=== PATIENT | female | born 1955 | race Two or more races ===

== ENCOUNTER 2022-01-30 21:47 | Inpatient (IN) | payer OTHER ==
[~2022-01-30] VITALS: Ht 165.1 cm; Wt 159.7 kg
[2022-01-31] MEDS ORDERED: HYDROCHLOROTHIAZIDE 12.5MG CAPSULE PO ONE (01:45)
[2022-01-31] MEDS ORDERED: LISINOPRIL 40MG TABLET PO ONE (01:45)
[2022-01-31 02:26] LABS: BASOPHILS % 1.2 % (0.0-2.0); EOSINOPHILS % 3.1 % (0.0-5.0); HEMATOCRIT. 44.6 % (36.0-48.0); HEMOGLOBIN. 14.3 g/dL (12.0-16.0); LYMPHOCYTES % 33.3 % (20.0-50.0); MEAN CORPUSCULAR HEMOGLOBIN 28.6 pg (28.0-32.0); MEAN CORPUSCULAR VOLUME 89.6 fL (81.0-99.0); MEAN PLATELET VOLUME 9.4 fl (7.4-10.4); MONOCYTES % 5.2 % (2.0-8.0); NEUTROPHILS % 57.2 % (40.0-76.0); PLATELET 172 x1000/uL (130-400); RED BLOOD CELL COUNT 4.98 mill/uL (4.2-5.4); RED CELL DISTRIBUTION WIDTH 15.9 % (11.6-14.6)
[2022-01-31 02:27] LABS: CLARITY URINE CLOUDY (CLEAR); COLOR URINE YELLOW (YELLOW); KETONES URINE NEGATIVE (NEGATIVE); LEUKOCYTE ESTERASE URINE NEGATIVE (NEGATIVE); NITRITE URINE NEGATIVE (NEGATIVE); OCCULT BLOOD URINE TRACE (NEGATIVE); PROTEIN URINE 1+ (NEGATIVE); SPECIFIC GRAVITY URINE 1.012 (1.005-1.030)
[2022-01-31 02:39] LABS: CHLORIDE 106 mEq/L (98-107)
[2022-01-31] MEDS ORDERED: ASPIRIN 325MG TABLET PO ONE (04:15)
[2022-01-31] MEDS ORDERED: FUROSEMIDE 40MG/4ML VIAL IVP NR (05:15)
[2022-01-31] MEDS ORDERED: ASPIRIN 81MG EC TABLET PO SCH (06:30)
[2022-01-31] MEDS ORDERED: DEXTROSE 50% WATER 50ML SYRINGE IV PRN (06:30)
[2022-01-31] MEDS ORDERED: MAGNESIUM/ALUMINUM HYDROXIDE/SIMETHICONE 30ML UDC PO PRN (06:30)
[2022-01-31] MEDS ORDERED: GUAIFENESIN 200MG/10ML SUGAR FREE UDC PO PRN (06:30)
[2022-01-31] MEDS ORDERED: DOCUSATE SODIUM 100MG CAPSULE PO PRN (06:30)
[2022-01-31] MEDS ORDERED: IPRATROPIUM/ALBUTEROL 0.5-3(2.5)MG/3ML NEB HHN PRN (06:30)
[2022-01-31] MEDS ORDERED: ONDANSETRON HCL 4MG/2ML INJ IV PRN (06:30)
[2022-01-31] MEDS: FUROSEMIDE 40MG/4ML VIAL IVP SCH ×2 (07:30→17:25)
[2022-01-31] MEDS: PANTOPRAZOLE SODIUM 40 MG/VIAL IV SCH (07:50)
[2022-01-31] MEDS: INSULIN LISPRO 100 UNITS/ML SUBCUT SCH ×4 (08:20→21:00)
[2022-01-31] MEDS: BLOOD SUGAR DIAGNOSTIC STRIP TEST SCH ×4 (08:24→21:48)
[2022-01-31] MEDS: METFORMIN HCL 500MG TABLET PO SCH ×2 (08:25→17:26)
[2022-01-31] MEDS: GLIPIZIDE 10MG TABLET PO SCH ×2 (08:25→17:26)
[2022-01-31] MEDS: LISINOPRIL 40MG TABLET PO SCH (09:00)
[2022-01-31] MEDS: MELOXICAM 7.5MG TABLET PO SCH (09:00)
[2022-01-31] MEDS: ENOXAPARIN 40MG/0.4ML SYR SUBCUT SCH ×2 (09:00→21:50)
[2022-01-31 12:39] LABS: PHOSPHORUS 4.1 mg/dL (2.5-4.9)
[2022-01-31 13:16] LABS: FOLIC ACID (FOLATE) SERUM 10.2 ng/mL (>5.38)
[2022-01-31] MEDS: GABAPENTIN 100MG CAPSULE PO SCH ×2 (14:27→21:46)
[2022-01-31 15:30] VITALS: BP 151/57
[2022-01-31] MEDS ORDERED: MELO-106 PO (15:49)
[2022-01-31] MEDS ORDERED: GABA-529 PO (15:49)
[2022-01-31] MEDS ORDERED: LISI40TA13 PO (15:49)
[2022-01-31] MEDS ORDERED: ATOR-2 PO (15:49)
[2022-01-31] MEDS ORDERED: ASPI-1406 PO (15:49)
[2022-01-31] MEDS ORDERED: METF-416 PO (15:49)
[2022-01-31] MEDS ORDERED: DOCU250C69 PO (15:49)
[2022-01-31] MEDS ORDERED: GLIP10TA10 PO (15:49)
[2022-01-31 16:00] VITALS: BP 139/67
[2022-01-31 16:04] LABS: CREATINE KINASE MB FRACTION 1.5 ng/mL (0.5-3.6)
[2022-01-31 20:00] VITALS: BP 179/96
[2022-01-31] MEDS: CLONIDINE 0.1MG TABLET PO PRN (21:46)
[2022-01-31] MEDS: ATORVASTATIN CALCIUM 40MG TABLET PO SCH (21:48)
[2022-02-01] VITALS: BP 157/75
[2022-02-01 01:39] LABS: CREATINE KINASE MB FRACTION 1.3 ng/mL (0.5-3.6)
[2022-02-01 04:00] VITALS: BP 156/64
[2022-02-01] MEDS: BLOOD SUGAR DIAGNOSTIC STRIP TEST SCH ×4 (06:30→21:00)
[2022-02-01] MEDS: PANTOPRAZOLE SODIUM 40 MG/VIAL IV SCH (06:52)
[2022-02-01] MEDS: GABAPENTIN 100MG CAPSULE PO SCH ×3 (06:52→21:06)
[2022-02-01 07:19] LABS: BASOPHILS % 0.5 % (0.0-2.0); EOSINOPHILS % 2.7 % (0.0-5.0); HEMATOCRIT. 40.9 % (36.0-48.0); LYMPHOCYTES % 31.2 % (20.0-50.0); MEAN CORPUSCULAR HEMOGLOBIN 29.1 pg (28.0-32.0); MEAN CORPUSCULAR VOLUME 91.7 fL (81.0-99.0); MEAN PLATELET VOLUME 9.1 fl (7.4-10.4); NEUTROPHILS % 58.6 % (40.0-76.0); PLATELET 158 x1000/uL (130-400); RED BLOOD CELL COUNT 4.46 mill/uL (4.2-5.4); RED CELL DISTRIBUTION WIDTH 15.5 % (11.6-14.6)
[2022-02-01 07:37] LABS: CHLORIDE 104 mEq/L (98-107)
[2022-02-01 07:50] LABS: HDL CHOLESTEROL 37 mg/dL (40-59); LDL CHOLESTEROL 83 mg/dL (5-100); T4 FREE 0.87 ng/dL (0.76-1.46)
[2022-02-01 08:00] VITALS: BP 146/68
[2022-02-01] MEDS: ASPIRIN 81MG TABLET PO SCH (09:00)
[2022-02-01] MEDS: MELOXICAM 7.5MG TABLET PO SCH (09:00)
[2022-02-01] MEDS: GLIPIZIDE 10MG TABLET PO SCH ×2 (09:00→18:05)
[2022-02-01] MEDS: FUROSEMIDE 40MG/4ML VIAL IVP SCH (09:00)
[2022-02-01] MEDS: METFORMIN HCL 500MG TABLET PO SCH ×2 (09:00→18:05)
[2022-02-01] MEDS: LISINOPRIL 40MG TABLET PO SCH (09:00)
[2022-02-01] MEDS: ENOXAPARIN 40MG/0.4ML SYR SUBCUT SCH ×2 (09:01→21:06)
[2022-02-01] MEDS: INSULIN LISPRO 100 UNITS/ML SUBCUT SCH ×4 (09:02→21:07)
[2022-02-01 09:47] LABS: *AMPHETAMINES SCREEN URINE NEGATIVE (NEGATIVE); *BARBITURATES SCREEN URINE NEGATIVE (NEGATIVE); *BENZODIAZEPINES SCREEN URINE NEGATIVE (NEGATIVE); *COCAINE SCREEN URINE NEGATIVE (NEGATIVE); CANNABINOID URINE SCREEN NEGATIVE (NEGATIVE); METHADONE URINE SCREEN NEGATIVE (NEGATIVE); OPIATES URINE SCREEN NEGATIVE (NEGATIVE); PHENCYCLIDINE URINE SCREEN NEGATIVE (NEGATIVE)
[2022-02-01 12:00] VITALS: BP 155/62
[2022-02-01 16:00] VITALS: BP 138/66
[2022-02-01] MEDS ORDERED: PANTOT AC/MIN OIL/PET HY-PHL OINT (AQUAPHOR) TOP PRN (17:30)
[2022-02-01 17:33] LABS: BG BASE EXCESS 4.4 mmol/L (-2.0-2.0); BG CARBOXYHEMOGLOBIN 1.5 % (0.5-1.5); BG DEOXYHEMOGLOBIN 1.3 % (0.0-5.0); BG FRACTION INSPIRED OXYGEN 40; BG HCO3 ACT 36.4 mmol/L (22.0-26.0); BG METHEMOGLOBIN 0.7 % (0.0-1.5); BG OXYGEN SATURATION 98.7 % (92.0-98.5); BG OXYHEMOGLOBIN 96.5 % (94.0-97.0); BG PCO2 95.1 mmHg (35.0-45.0); BG PH 7.201 (7.350-7.450); BG PO2 143.7 mmHg (75.0-100.0); BG SAMPLE SITE RIGHT RADIAL; BG TOTAL HEMOGLOBIN 15.8 g/dL (12.0-18.0); BG VENT MODE NASAL CANNULA
[2022-02-01 20:00] VITALS: BP 156/84
[2022-02-01] MEDS: ATORVASTATIN CALCIUM 40MG TABLET PO SCH (21:06)
[2022-02-01] MEDS: ACETAMINOPHEN 325MG TABLET PO PRN (23:31)
[2022-02-02] VITALS: BP 147/78
[2022-02-02 04:00] VITALS: BP 189/73
[2022-02-02] MEDS: INSULIN LISPRO 100 UNITS/ML SUBCUT SCH ×4 (06:08→20:42)
[2022-02-02] MEDS: BLOOD SUGAR DIAGNOSTIC STRIP TEST SCH ×4 (06:08→20:42)
[2022-02-02] MEDS: GABAPENTIN 100MG CAPSULE PO SCH ×3 (06:11→20:41)
[2022-02-02] MEDS: PANTOPRAZOLE SODIUM 40 MG/VIAL IV SCH (06:11)
[2022-02-02 07:09] LABS: HEMATOCRIT 40.3 % (36.0-48.0); HEMOGLOBIN 12.8 g/dL (12.0-16.0); MEAN CORPUSCULAR HEMOGLOBIN 29.2 pg (28.0-32.0); MEAN CORPUSCULAR VOLUME 91.5 fL (81.0-99.0); PLATELET 166 x1000/uL (130-400); RED CELL DISTRIBUTION WIDTH 15.3 % (11.6-14.6)
[2022-02-02 07:24] LABS: CHLORIDE 103 mEq/L (98-107)
[2022-02-02 07:37] LABS: CREATINE KINASE 128 IU/L (26-192); CREATINE KINASE MB FRACTION < 1.0 ng/mL (0.5-3.6)
[2022-02-02 08:00] VITALS: BP 155/74
[2022-02-02] MEDS: METFORMIN HCL 500MG TABLET PO SCH ×2 (08:35→17:17)
[2022-02-02] MEDS: ENOXAPARIN 40MG/0.4ML SYR SUBCUT SCH ×2 (08:35→20:41)
[2022-02-02] MEDS: ASPIRIN 81MG TABLET PO SCH (08:35)
[2022-02-02] MEDS: ACETAMINOPHEN 325MG TABLET PO PRN (08:35)
[2022-02-02] MEDS: GLIPIZIDE 10MG TABLET PO SCH ×2 (08:35→17:17)
[2022-02-02] MEDS: LISINOPRIL 40MG TABLET PO SCH (08:35)
[2022-02-02] MEDS: MELOXICAM 7.5MG TABLET PO SCH (08:36)
[2022-02-02 09:16] LABS: BG BASE EXCESS 7.6 mmol/L (-2.0-2.0); BG CARBOXYHEMOGLOBIN 0.6 % (0.5-1.5); BG DEOXYHEMOGLOBIN 3.4 % (0.0-5.0); BG FRACTION INSPIRED OXYGEN 40; BG HCO3 ACT 36.4 mmol/L (22.0-26.0); BG METHEMOGLOBIN 0.3 % (0.0-1.5); BG OXYGEN SATURATION 96.6 % (92.0-98.5); BG OXYHEMOGLOBIN 95.7 % (94.0-97.0); BG PCO2 72.8 mmHg (35.0-45.0); BG PH 7.317 (7.350-7.450); BG PO2 91.8 mmHg (75.0-100.0); BG SAMPLE SITE RIGHT RADIAL; BG TOTAL HEMOGLOBIN 13.5 g/dL (12.0-18.0); BG VENT MODE NASAL CANNULA
[2022-02-02 12:00] VITALS: BP 150/73
[2022-02-02 16:00] VITALS: BP 124/61
[2022-02-02 20:00] VITALS: BP 89/51
[2022-02-02] MEDS: ATORVASTATIN CALCIUM 40MG TABLET PO SCH (20:41)
[2022-02-03] VITALS: BP 164/79
[2022-02-03] MEDS: ACETAMINOPHEN 325MG TABLET PO PRN (00:16)
[2022-02-03 04:00] VITALS: BP 145/54
[2022-02-03] MEDS: GABAPENTIN 100MG CAPSULE PO SCH (05:52)
[2022-02-03] MEDS ORDERED: FAMOTIDINE 20MG TABLET PO SCH (07:10)
[2022-02-03] MEDS: BLOOD SUGAR DIAGNOSTIC STRIP TEST SCH ×2 (07:10→12:21)
[2022-02-03] MEDS: INSULIN LISPRO 100 UNITS/ML SUBCUT SCH ×2 (07:31→12:23)
[2022-02-03 08:00] VITALS: BP 183/73
[2022-02-03] MEDS: MELOXICAM 7.5MG TABLET PO SCH (08:37)
[2022-02-03] MEDS: ENOXAPARIN 40MG/0.4ML SYR SUBCUT SCH (08:38)
[2022-02-03] MEDS: METFORMIN HCL 500MG TABLET PO SCH (08:38)
[2022-02-03] MEDS: ASPIRIN 81MG TABLET PO SCH (08:38)
[2022-02-03] MEDS: GLIPIZIDE 10MG TABLET PO SCH (08:38)
[2022-02-03] MEDS: LISINOPRIL 40MG TABLET PO SCH (08:42)
[2022-02-03] MEDS: CLONIDINE 0.1MG TABLET PO PRN (08:43)
[2022-02-03 09:03] LABS: BG BASE EXCESS 9.8 mmol/L (-2.0-2.0); BG CARBOXYHEMOGLOBIN 1.3 % (0.5-1.5); BG DEOXYHEMOGLOBIN 3.7 % (0.0-5.0); BG FRACTION INSPIRED OXYGEN 30; BG HCO3 ACT 37.2 mmol/L (22.0-26.0); BG METHEMOGLOBIN 0.2 % (0.0-1.5); BG OXYGEN SATURATION 96.2 % (92.0-98.5); BG OXYHEMOGLOBIN 94.8 % (94.0-97.0); BG PCO2 62.9 mmHg (35.0-45.0); BG PO2 81.5 mmHg (75.0-100.0); BG SAMPLE SITE LEFT RADIAL; BG TOTAL HEMOGLOBIN 13.8 g/dL (12.0-18.0); BG VENT MODE NASAL CANNULA
[2022-02-03 11:18] LABS: HEMATOCRIT 39.3 % (36.0-48.0); HEMOGLOBIN 12.7 g/dL (12.0-16.0); MEAN CORPUSCULAR HEMOGLOBIN 29.1 pg (28.0-32.0); MEAN CORPUSCULAR VOLUME 90.4 fL (81.0-99.0); PLATELET 155 x1000/uL (130-400); RED BLOOD CELL COUNT 4.35 mill/uL (4.2-5.4); RED CELL DISTRIBUTION WIDTH 15.5 % (11.6-14.6)
[2022-02-03 11:44] LABS: CHLORIDE 101 mEq/L (98-107)
[2022-02-03 12:00] VITALS: BP 184/84
[2022-02-03] MEDS ORDERED: HYDRALAZINE HCL 50MG TABLET PO NR (12:15)
[2022-02-03 12:50] VITALS: BP 184/84
== END 2022-02-03 13:52 | disposition short-term general hospital (02) | DRG 189 ==
LOC: ER 21:47 → MICUSO 01-31 05:14 → EDBEDREQTM 01-31 05:22 → EDBEDREQ 01-31 05:22 → 8WST 01-31 13:43
PROVIDERS: ADMIT Hospitalist; ATTEND Hospitalist
DX: J96.02 Acute respiratory failure with hypercapnia (principal); I21.A1 Myocardial infarction type 2; Z68.43 Body mass index [BMI] 50.0-59.9, adult; E66.2 Morbid (severe) obesity with alveolar hypoventilation; J45.909 Unspecified asthma, uncomplicated; Z20.822 Contact with and (suspected) exposure to COVID-19; E78.5 Hyperlipidemia, unspecified; E11.65 Type 2 diabetes mellitus with hyperglycemia; I10 Essential (primary) hypertension; I87.2 Venous insufficiency (chronic) (peripheral); K59.00 Constipation, unspecified; Z88.0 Allergy status to penicillin; Z79.899 Other long term (current) drug therapy; Z79.82 Long term (current) use of aspirin
CPT/HCPCS: 36415; 36600; 71045; 80048; 80053; 80061; 80305; 81003; 82375; 82550; 82553; 82607; 82652; 82746; 82805; 82962; 83036; 83735; 83880; 84100; 84439; 84443; 84481; 84484; 85025; 85027; 87426; 93005; 93306; 93970; 97162; 97530; 99285; C9113; C9803; J1650; J1815; J1940

== ENCOUNTER 2024-04-07 13:38 | Inpatient (IN) | payer OTHER ==
[~2024-04-07] VITALS: Ht 162.6 cm; Wt 143.8 kg
[~2024-04-07 13:38] MED LIST: ASPI-1406 PO; ATOR-2 PO; DOCU-405 PO; GABA-529 PO; GLIP10TA17 PO; LISI40TA13 PO; MELO-106 PO; METF-416 PO
[2024-04-07 16:48] VITALS: PULSE 73; RESP 20; O2SAT 100
[2024-04-07] MEDS: IPRATROPIUM BROMIDE (0.02%) 0.5MG/2.5ML NEB HHN STA (16:48)
[2024-04-07] MEDS: ALBUTEROL (0.083%) 2.5MG/3ML NEB HHN STA (16:49)
[2024-04-07] MEDS: MAGNESIUM 2 G PREMIX 50 ML IV ONE (16:54)
[2024-04-07] MEDS: METHYLPREDNISOLONE SOD SUCC 125MG/2ML (ACT-O-VIAL) IV STA (16:54)
[2024-04-07 16:56] LABS: BASOPHILS % 0.3 % (0.0-2.0); CHLORIDE 97 mEq/L (98-107); EOSINOPHILS % 3.6 % (0.0-5.0); HEMATOCRIT. 39.6 % (36.0-48.0); HEMOGLOBIN. 12.6 g/dL (12.0-16.0); LYMPHOCYTES % 44.4 % (20.0-50.0); MEAN CORPUSCULAR HGB CONC 31.7 g/dL (31.0-37.0); MEAN CORPUSCULAR VOLUME 91.6 fL (81.0-99.0); MEAN PLATELET VOLUME 9.7 fl (7.4-10.4); MONOCYTES % 9.8 % (2.0-8.0); NEUTROPHILS % 41.9 % (40.0-76.0); PLATELET 115 x1000/uL (130-400); POTASSIUM 3.5 mEq/L (3.5-5.1); RED BLOOD CELL COUNT 4.33 mill/uL (4.2-5.4); RED CELL DISTRIBUTION WIDTH 14.8 % (11.6-14.6); SODIUM 141 mEq/L (136-145); WHITE BLOOD COUNT 8.3 x1000/uL (4.5-11.0)
[2024-04-07 16:57] LABS: CALCIUM 8.7 mg/dL (8.7-10.4); CARBON DIOXIDE 38 mEq/L (21-32)
[2024-04-07 17:02] LABS: CREATININE 0.5 mg/dL (0.6-1.0); GLUCOSE 158 mg/dL (70-105); UREA NITROGEN BLOOD 10 mg/dL (9-23)
[2024-04-07 17:22] LABS: TROPONIN I HIGH SENSITIVITY 55 ng/L (3.0-34)
[2024-04-07] MEDS: FUROSEMIDE 40MG/4ML VIAL IVP NR (18:09)
[2024-04-07 21:45] VITALS: BP 146/64; PULSE 71; RESP 20; TEMP 36.3
[2024-04-07] MEDS ORDERED: MAGNESIUM HYDROXIDE 400MG/5ML 30ML UDC PO PRN (22:30)
[2024-04-07] MEDS ORDERED: ACETAMINOPHEN WITH CODEINE 300/30MG TABLET PO PRN (22:30)
[2024-04-07] MEDS ORDERED: ONDANSETRON HCL 4MG TABLET PO PRN (22:30)
[2024-04-07] MEDS ORDERED: HYDRALAZINE HCL 10MG TABLET PO PRN (22:30)
[2024-04-07] MEDS ORDERED: ACETAMINOPHEN 325MG TABLET PO PRN (22:30)
[2024-04-07] MEDS ORDERED: IPRATROPIUM/ALBUTEROL 0.5-3(2.5)MG/3ML NEB HHN PRN (22:30)
[2024-04-07] MEDS ORDERED: GUAIFENESIN 200MG/10ML SUGAR FREE UDC PO PRN (22:30)
[2024-04-07] MEDS ORDERED: DEXTROSE 50% WATER 50ML SYRINGE IV PRN (22:45)
[2024-04-07] MEDS: ATORVASTATIN CALCIUM 40MG TABLET PO SCH (22:55)
[2024-04-07] MEDS: MONTELUKAST SODIUM 10MG TABLET PO SCH (22:56)
[2024-04-07 23:30] VITALS: BP 146/64; PULSE 71; RESP 20; TEMP 36.3; O2SAT 97
[2024-04-08] VITALS: BP 128/58; PULSE 68; RESP 20; TEMP 37.3; O2SAT 98
[2024-04-08 04:00] VITALS: BP 114/57; PULSE 74; RESP 20; TEMP 36.5; O2SAT 100
[2024-04-08] MEDS: METHYLPREDNISOLONE SOD SUCC 40MG/ML (ACT-O-VIAL) IV SCH ×2 (05:33→17:34)
[2024-04-08 07:06] LABS: CHLORIDE 94 mEq/L (98-107); POTASSIUM 3.8 mEq/L (3.5-5.1); SODIUM 139 mEq/L (136-145)
[2024-04-08 07:09] LABS: CALCIUM 9.1 mg/dL (8.7-10.4); CARBON DIOXIDE 35 mEq/L (21-32)
[2024-04-08 07:10] LABS: UREA NITROGEN BLOOD 12 mg/dL (9-23)
[2024-04-08 07:12] LABS: BASOPHILS % 0.1 % (0.0-2.0); HEMATOCRIT. 38.6 % (36.0-48.0); HEMOGLOBIN. 12.3 g/dL (12.0-16.0); LYMPHOCYTES % 31.4 % (20.0-50.0); MEAN CORPUSCULAR HEMOGLOBIN 28.6 pg (28.0-32.0); MEAN CORPUSCULAR HGB CONC 31.8 g/dL (31.0-37.0); MEAN CORPUSCULAR VOLUME 89.8 fL (81.0-99.0); MEAN PLATELET VOLUME 9.5 fl (7.4-10.4); MONOCYTES % 2.7 % (2.0-8.0); NEUTROPHILS % 65.8 % (40.0-76.0); PLATELET 115 x1000/uL (130-400); RED CELL DISTRIBUTION WIDTH 15.1 % (11.6-14.6); WHITE BLOOD COUNT 5.4 x1000/uL (4.5-11.0)
[2024-04-08 07:14] LABS: CREATININE 0.5 mg/dL (0.6-1.0); GLUCOSE 223 mg/dL (70-105)
[2024-04-08 07:16] LABS: ALANINE AMINOTRANSFERASE 12 IU/L (10-49); ALBUMIN 3.5 g/dL (3.2-4.8); ASPARTATE AMINOTRANSFERASE 12 IU/L (<34); BILIRUBIN DIRECT 0.2 mg/dL (<=3.0)
[2024-04-08 07:17] LABS: BILIRUBIN TOTAL 0.5 mg/dL (0.1-1.0); PHOSPHORUS 2.4 mg/dL (2.5-4.9); PROTEIN TOTAL 6.6 g/dL (6.0-8.3)
[2024-04-08 08:04] VITALS: BP 119/59; PULSE 82; RESP 18; TEMP 36.6; O2SAT 97
[2024-04-08] MEDS: ASPIRIN 81MG TABLET PO SCH (09:09)
[2024-04-08] MEDS: HEPARIN 5000 UNITS/ML VIAL SUBCUT SCH (09:09)
[2024-04-08] MEDS: FUROSEMIDE 40MG/4ML VIAL IVP SCH (09:09)
[2024-04-08] MEDS: INSULIN LISPRO 100 UNITS/ML SUBCUT SCH ×2 (09:10→17:35)
[2024-04-08] MEDS: BLOOD SUGAR DIAGNOSTIC STRIP TEST SCH (09:52)
[2024-04-08 11:39] VITALS: BP 118/53; PULSE 70; RESP 20; TEMP 36.5; O2SAT 95
[2024-04-08] MEDS: POTASSIUM-SODIUM PHOSPHATE POWDER PACKET PO SCH (14:29)
[2024-04-08 16:02] VITALS: BP 121/44; PULSE 71; RESP 19; TEMP 36.7; O2SAT 97
[2024-04-08 20:00] VITALS: BP 121/55; PULSE 73; RESP 18; TEMP 36.8; O2SAT 96
[2024-04-09] VITALS: BP 115/49; PULSE 67; RESP 20; TEMP 37.6; O2SAT 98
[2024-04-09] MEDS: ACETAMINOPHEN 325MG TABLET PO PRN (03:37)
[2024-04-09 04:00] VITALS: BP 112/51; PULSE 60; RESP 20; TEMP 35.7; O2SAT 97
[2024-04-09 07:26] LABS: BASOPHILS % 0.4 % (0.0-2.0); HEMATOCRIT. 36.6 % (36.0-48.0); HEMOGLOBIN. 11.9 g/dL (12.0-16.0); LYMPHOCYTES % 29.1 % (20.0-50.0); MEAN CORPUSCULAR HEMOGLOBIN 28.8 pg (28.0-32.0); MEAN CORPUSCULAR HGB CONC 32.4 g/dL (31.0-37.0); MEAN CORPUSCULAR VOLUME 88.7 fL (81.0-99.0); MEAN PLATELET VOLUME 9.5 fl (7.4-10.4); MONOCYTES % 4.1 % (2.0-8.0); NEUTROPHILS % 66.4 % (40.0-76.0); PLATELET 128 x1000/uL (130-400); RED BLOOD CELL COUNT 4.13 mill/uL (4.2-5.4); RED CELL DISTRIBUTION WIDTH 14.6 % (11.6-14.6); WHITE BLOOD COUNT 7.3 x1000/uL (4.5-11.0)
[2024-04-09 07:38] LABS: CALCIUM 9.2 mg/dL (8.7-10.4); CARBON DIOXIDE 36 mEq/L (21-32); CHLORIDE 91 mEq/L (98-107); POTASSIUM 3.6 mEq/L (3.5-5.1); SODIUM 135 mEq/L (136-145)
[2024-04-09 07:41] LABS: CREATININE 0.7 mg/dL (0.6-1.0)
[2024-04-09 07:42] LABS: GLUCOSE 288 mg/dL (70-105)
[2024-04-09 07:44] LABS: UREA NITROGEN BLOOD 20 mg/dL (9-23)
[2024-04-09 07:46] LABS: PHOSPHORUS 2.2 mg/dL (2.5-4.9)
[2024-04-09 08:23] VITALS: BP 116/47; PULSE 63; RESP 20; TEMP 37.1; O2SAT 98
[2024-04-09 12:13] VITALS: BP 126/49; PULSE 84; RESP 20; TEMP 36.5; O2SAT 97
[2024-04-09 16:42] VITALS: BP 111/42; PULSE 72; RESP 20; TEMP 37; O2SAT 96
[2024-04-09] MEDS: POTASSIUM-SODIUM PHOSPHATE POWDER PACKET PO SCH (17:57)
[2024-04-09 20:00] VITALS: BP 104/39; PULSE 77; RESP 19; TEMP 36.4; O2SAT 98
[2024-04-10] VITALS: BP 107/59; PULSE 73; RESP 19; TEMP 36.3; O2SAT 97
[2024-04-10 04:00] VITALS: BP 121/53; PULSE 69; RESP 19; TEMP 36.2; O2SAT 99
[2024-04-10 08:00] VITALS: BP 134/48; PULSE 70; RESP 18; TEMP 36.3; O2SAT 97
[2024-04-10] MEDS: PREDNISONE 20MG TABLET PO SCH (09:02)
[2024-04-10] MEDS: MORPHINE SULFATE 2 MG/ML INJ (NOT FOR IM USE) IV PRN (09:03)
[2024-04-10 12:00] VITALS: BP 121/51; PULSE 72; RESP 18; TEMP 36.3; O2SAT 98
[2024-04-10 12:54] LABS: BASOPHILS % 0.6 % (0.0-2.0); EOSINOPHILS % 0.2 % (0.0-5.0); HEMATOCRIT. 39.6 % (36.0-48.0); HEMOGLOBIN. 12.6 g/dL (12.0-16.0); LYMPHOCYTES % 30.1 % (20.0-50.0); MEAN CORPUSCULAR HEMOGLOBIN 28.3 pg (28.0-32.0); MEAN CORPUSCULAR HGB CONC 31.8 g/dL (31.0-37.0); MEAN CORPUSCULAR VOLUME 89.1 fL (81.0-99.0); MEAN PLATELET VOLUME 9.3 fl (7.4-10.4); MONOCYTES % 9.6 % (2.0-8.0); NEUTROPHILS % 59.5 % (40.0-76.0); PLATELET 143 x1000/uL (130-400); RED BLOOD CELL COUNT 4.44 mill/uL (4.2-5.4); RED CELL DISTRIBUTION WIDTH 14.4 % (11.6-14.6); WHITE BLOOD COUNT 8.2 x1000/uL (4.5-11.0)
[2024-04-10 13:09] LABS: CHLORIDE 90 mEq/L (98-107); POTASSIUM 3.9 mEq/L (3.5-5.1); SODIUM 135 mEq/L (136-145)
[2024-04-10 13:10] LABS: CARBON DIOXIDE 37 mEq/L (21-32)
[2024-04-10 13:11] LABS: CALCIUM 9.4 mg/dL (8.7-10.4)
[2024-04-10 13:15] LABS: CREATININE 0.6 mg/dL (0.6-1.0); GLUCOSE 307 mg/dL (70-105); UREA NITROGEN BLOOD 20 mg/dL (9-23)
[2024-04-10] MEDS ORDERED: BISACODYL 5MG TABLET PO PRN (15:15)
[2024-04-10 16:00] VITALS: BP 134/58; PULSE 70; RESP 18; TEMP 36.4; O2SAT 99
[2024-04-10] MEDS: POLYETHYLENE GLYCOL 3350 (17GM) 1 DOSE PACK PO SCH (17:49)
[2024-04-10] MEDS: INSULIN LISPRO 100 UNITS/ML SUBCUT SCH (17:53)
[2024-04-10] MEDS: INSULIN GLARGINE 100 UNITS/ML SUBCUT SCH (17:54)
[2024-04-10 18:16] VITALS: BP 134/58; PULSE 70; TEMP 97.5; O2SAT 99
== END 2024-04-10 19:06 | disposition short-term general hospital (02) | DRG 292 ==
LOC: ER 13:42 → 7WST 20:47 → EDBEDREQTM 20:50 → EDBEDREQ 20:50
PROVIDERS: ADMIT Internal Medicine; ATTEND Internal Medicine
PROC: 5A09357 Assistance with Respiratory Ventilation, Less than 24 Consecutive Hours, Continuous Positive Airway Pressure (ICD-10-PCS; principal; 2024-04-08)
DX: I11.0 Hypertensive heart disease with heart failure (principal); J44.1 Chronic obstructive pulmonary disease with (acute) exacerbation; Z68.43 Body mass index [BMI] 50.0-59.9, adult; I50.9 Heart failure, unspecified; E83.39 Other disorders of phosphorus metabolism; G47.33 Obstructive sleep apnea (adult) (pediatric); E66.9 Obesity, unspecified; E11.9 Type 2 diabetes mellitus without complications; Z99.81 Dependence on supplemental oxygen; Z86.73 Personal history of transient ischemic attack (TIA), and cerebral infarction without residual deficits; Z88.0 Allergy status to penicillin
CPT/HCPCS: 36415; 71045; 80048; 80076; 82962; 83735; 83880; 84100; 84484; 85025; 93005; 94640; 99285; A4606; C1893; J1644; J1815; J1940; J2270; J2919; J2920; J3475; J7512

== ENCOUNTER 2024-05-31 21:30 | Emergency (ER) | payer OTHER ==
[~2024-05-31] VITALS: Ht 175.3 cm; Wt 130.0 kg
[~2024-05-31 21:30] MED LIST changes: -METF-416 PO
[2024-06-01 00:14] LABS: BASOPHILS % 0.8 % (0.0-2.0); EOSINOPHILS % 2.2 % (0.0-5.0); HEMATOCRIT. 37.6 % (36.0-48.0); HEMOGLOBIN. 11.8 g/dL (12.0-16.0); LYMPHOCYTES % 33.5 % (20.0-50.0); MEAN CORPUSCULAR HEMOGLOBIN 29.5 pg (28.0-32.0); MEAN CORPUSCULAR HGB CONC 31.4 g/dL (31.0-37.0); MEAN CORPUSCULAR VOLUME 93.8 fL (81.0-99.0); MEAN PLATELET VOLUME 9.6 fl (7.4-10.4); MONOCYTES % 5.1 % (2.0-8.0); NEUTROPHILS % 58.4 % (40.0-76.0); PLATELET 191 x1000/uL (130-400); RED BLOOD CELL COUNT 4.01 mill/uL (4.2-5.4); RED CELL DISTRIBUTION WIDTH 16.1 % (11.6-14.6); WHITE BLOOD COUNT 12.2 x1000/uL (4.5-11.0)
[2024-06-01 00:21] LABS: CHLORIDE 100 mEq/L (98-107); POTASSIUM 4.4 mEq/L (3.5-5.1)
[2024-06-01 00:22] LABS: SODIUM 142 mEq/L (136-145)
[2024-06-01 00:23] LABS: CALCIUM 9.6 mg/dL (8.7-10.4)
[2024-06-01 00:24] LABS: PROTHROMBIN TIME 10.5 sec (9.6-11.0)
[2024-06-01 00:27] LABS: CREATININE 0.5 mg/dL (0.6-1.0); GLUCOSE 135 mg/dL (70-105)
[2024-06-01 00:28] LABS: ETHANOL BLOOD < 10 mg/dL (<10); UREA NITROGEN BLOOD 8 mg/dL (9-23)
[2024-06-01 00:29] LABS: ALANINE AMINOTRANSFERASE < 7 IU/L (10-49); ALBUMIN 3.7 g/dL (3.2-4.8); ASPARTATE AMINOTRANSFERASE 10 IU/L (<34)
[2024-06-01 00:30] LABS: BILIRUBIN DIRECT 0.1 mg/dL (<=3.0); BILIRUBIN TOTAL 0.4 mg/dL (0.1-1.0); PROTEIN TOTAL 6.8 g/dL (6.0-8.3)
[2024-06-01 00:39] LABS: CARBON DIOXIDE > 40 mEq/L (21-32)
[2024-06-01 00:40] LABS: TROPONIN I HIGH SENSITIVITY 51 ng/L (3.0-34)
[2024-06-01] MEDS: METHYLPREDNISOLONE SOD SUCC 125MG/2ML (ACT-O-VIAL) IV STA (01:32)
[2024-06-01] MEDS: IPRATROPIUM BROMIDE (0.02%) 0.5MG/2.5ML NEB HHN STA (01:36)
[2024-06-01] MEDS: ALBUTEROL (0.083%) 2.5MG/3ML NEB HHN STA (01:37)
[2024-06-01 01:43] VITALS: PULSE 79; RESP 20; O2SAT 97
[2024-06-01] MEDS: LEVOFLOXACIN 750MG PREMIX 150 ML IV ONE (02:42)
[2024-06-01] MEDS: ACETAMINOPHEN 325MG TABLET PO ONE (02:42)
[2024-06-01] MEDS: ASPIRIN 325MG TABLET PO ONE (02:42)
[2024-06-01 02:46] LABS: BG BASE EXCESS 12.1 mmol/L (-2.0-3.0); BG CARBOXYHEMOGLOBIN 1.1 % (0.5-1.5); BG DEOXYHEMOGLOBIN 1.4 % (0.0-5.0); BG HCO3 ACT 41.1 mmol/L (21.0-28.0); BG METHEMOGLOBIN 0.1 % (0.5-1.5); BG OXYGEN SATURATION 98.6 % (94.0-98.0); BG OXYHEMOGLOBIN 97.4 % (94.0-98.0); BG PCO2 80.5 mmHg (32.0-45.0); BG PH 7.326 (7.350-7.450); BG PO2 125.5 mmHg (83.0-108.0); BG SAMPLE SITE LEFT RADIAL; BG TOTAL HEMOGLOBIN 11.8 g/dL (12.0-16.0); BG VENT MODE NASAL CANNULA
[2024-06-01 05:44] VITALS: BP 146/76; PULSE 70; RESP 20; O2SAT 100
== END 2024-06-01 05:52 | disposition admitted as inpatient to this hospital (09) ==
LOC: ER 21:30
DX: I63.9 Cerebral infarction, unspecified (principal); E11.9 Type 2 diabetes mellitus without complications; E78.00 Pure hypercholesterolemia, unspecified; I11.0 Hypertensive heart disease with heart failure; I50.9 Heart failure, unspecified; Z79.82 Long term (current) use of aspirin; Z86.73 Personal history of transient ischemic attack (TIA), and cerebral infarction without residual deficits; Z79.899 Other long term (current) drug therapy; Z88.0 Allergy status to penicillin
CPT/HCPCS: 80076; 80048; 80320; 83880; 85025; 85610; 84484; 71045; 70450; 93005; 99285; 94640; 82805; 82375; 94760; 96365; 96375; 36600; Z7610 ×3; J2919; J1956; G0480

== ENCOUNTER 2024-11-05 09:21 | Inpatient (IN) | payer OTHER ==
[~2024-11-05] VITALS: Ht 165.1 cm; Wt 155.4 kg
[~2024-11-05 09:21] MED LIST changes: -LISI40TA13 PO; +LISI40TA21 PO
[2024-11-05 09:23] VITALS: O2SAT 94
[2024-11-05 11:26] LABS: BASOPHILS % 0.5 % (0.0-2.0); EOSINOPHILS % 0.0 % (0.0-5.0); HEMATOCRIT. 38.3 % (36.0-48.0); HEMOGLOBIN. 12.0 g/dL (12.0-16.0); LYMPHOCYTES % 9.9 % (20.0-50.0); MEAN PLATELET VOLUME 9.8 fl (7.4-10.4); MONOCYTES % 4.7 % (2.0-8.0); NEUTROPHILS % 84.9 % (40.0-76.0); PLATELET 208 x1000/uL (130-400); RED BLOOD CELL COUNT 4.13 mill/uL (4.2-5.4); RED CELL DISTRIBUTION WIDTH 14.7 % (11.6-14.6)
[2024-11-05 11:46] LABS: CREATININE 0.5 mg/dL (0.6-1.0)
[2024-11-05 11:47] LABS: UREA NITROGEN BLOOD 6 mg/dL (9-23)
[2024-11-05 11:48] LABS: ASPARTATE AMINOTRANSFERASE 15 IU/L (<34)
[2024-11-05 11:49] LABS: BILIRUBIN DIRECT 0.3 mg/dL (<=3.0); BILIRUBIN TOTAL 1.0 mg/dL (0.1-1.0); PROTEIN TOTAL 7.2 g/dL (6.0-8.3)
[2024-11-05 11:50] LABS: TROPONIN I HIGH SENSITIVITY 50 ng/L (3.0-34)
[2024-11-05] MEDS: SODIUM CHLORIDE 0.9% (SEPSIS BOLUS) IV ONE (12:03)
[2024-11-05] MEDS: MEROPENEM 1G/100ML 100 ML IV ONE (12:35)
[2024-11-05] MEDS: VANCOMYCIN 1G PREMIX 200 ML IV ONE (13:00)
[2024-11-05] MEDS ORDERED: MORPHINE SULFATE 4 MG/ML INJ (FOR IV/IM USE) IV PRN (14:15)
[2024-11-05] MEDS ORDERED: ONDANSETRON HCL 4MG/2ML INJ IV PRN (14:15)
[2024-11-05] MEDS ORDERED: CLONIDINE 0.1MG TABLET PO PRN (14:15)
[2024-11-05] MEDS ORDERED: HYDROCODONE/ACETAMINOPHEN 5/325MG TABLET PO PRN (14:15)
[2024-11-05] MEDS ORDERED: ZOLPIDEM TARTRATE 5MG TABLET PO PRN (14:15)
[2024-11-05] MEDS ORDERED: MAGNESIUM/ALUMINUM HYDROXIDE/SIMETHICONE 30ML UDC PO PRN (14:15)
[2024-11-05] MEDS ORDERED: ACETAMINOPHEN 325MG TABLET PO PRN (14:15)
[2024-11-05] MEDS ORDERED: NALOXONE HCL 0.4MG/ML VIAL IV PRN (14:30)
[2024-11-05 15:00] VITALS: BP 140/61; PULSE 112; RESP 20; TEMP 36.974
[2024-11-05 16:00] VITALS: BP 140/61; PULSE 112; RESP 20; TEMP 36.9; O2SAT 96
[2024-11-05] MEDS ORDERED: METF-1150 MT (18:00)
[2024-11-05] MEDS: ENOXAPARIN 30MG/0.3ML SYR SUBCUT SCH (18:10)
[2024-11-05] MEDS: SODIUM CHLORIDE 0.9% 1,000 ML IV SCH (18:10)
[2024-11-05 20:00] VITALS: BP 126/56; PULSE 90; RESP 20; TEMP 36.6; O2SAT 100
[2024-11-06] VITALS: BP 135/49; PULSE 82; RESP 19; TEMP 36.4; O2SAT 100
[2024-11-06 04:00] VITALS: BP 122/48; PULSE 84; RESP 20; TEMP 36.9; O2SAT 98
[2024-11-06 08:00] VITALS: BP 147/65; PULSE 89; RESP 18; TEMP 37.4; O2SAT 100
[2024-11-06] MEDS: PANTOPRAZOLE SODIUM 40 MG/VIAL IV SCH (09:23)
[2024-11-06] MEDS ORDERED: DEXTROSE 50% WATER 50ML SYRINGE IV PRN (10:30)
[2024-11-06 12:00] VITALS: BP 115/41; PULSE 62; RESP 19; TEMP 36.2; O2SAT 99
[2024-11-06] MEDS: BLOOD SUGAR DIAGNOSTIC STRIP TEST SCH (12:20)
[2024-11-06] MEDS: INSULIN LISPRO 100 UNITS/ML SUBCUT SCH (12:50)
[2024-11-06] MEDS: VANCOMYCIN 1.25GM/250ML 250 ML IV SCH (14:28)
[2024-11-06] MEDS: GABAPENTIN 100MG CAPSULE PO SCH (14:45)
[2024-11-06 16:00] VITALS: BP 119/54; PULSE 83; RESP 18; TEMP 36.3; O2SAT 100
[2024-11-06] MEDS: PIPERACILLIN/TAZO 3.375G/50ML 50 ML IV SCH (16:46)
[2024-11-06 20:00] VITALS: BP 138/68; PULSE 85; RESP 18; TEMP 35.8; O2SAT 96
[2024-11-06 22:33] LABS: PLATELET 153 x1000/uL (130-400); RED BLOOD CELL COUNT 3.63 mill/uL (4.2-5.4); RED CELL DISTRIBUTION WIDTH 14.9 % (11.6-14.6)
[2024-11-06 22:54] LABS: TROPONIN I HIGH SENSITIVITY 44 ng/L (3.0-34)
[2024-11-07] VITALS: BP 144/68; PULSE 87; RESP 18; TEMP 36; O2SAT 98
[2024-11-07] MEDS: VANCOMYCIN 1.25GM/250ML IV SCH (00:06)
[2024-11-07 04:00] VITALS: BP 145/59; PULSE 111; RESP 18; TEMP 36.5; O2SAT 97
[2024-11-07] MEDS ORDERED: ASPIRIN 81MG EC TABLET PO SCH (09:00)
[2024-11-07] MEDS ORDERED: GLIPIZIDE 10MG TABLET PO SCH (09:00)
[2024-11-07] MEDS ORDERED: LISINOPRIL 40MG TABLET PO SCH (09:00)
== END 2024-11-07 07:30 | disposition short-term general hospital (02) | DRG 871 ==
LOC: ER 09:21 → 6WST 13:09 → EDBEDREQ 13:12 → EDBEDREQSVC 13:12 → EDBEDREQTM 13:12 → ENRESERV 13:42 → ER 14:30
PROVIDERS: ADMIT Internal Medicine; ATTEND Internal Medicine
DX: A41.9 Sepsis, unspecified organism (principal); I21.4 Non-ST elevation (NSTEMI) myocardial infarction; J18.9 Pneumonia, unspecified organism; Z68.43 Body mass index [BMI] 50.0-59.9, adult; J44.0 Chronic obstructive pulmonary disease with (acute) lower respiratory infection; I11.0 Hypertensive heart disease with heart failure; I50.9 Heart failure, unspecified; E11.65 Type 2 diabetes mellitus with hyperglycemia; E66.01 Morbid (severe) obesity due to excess calories; Z86.73 Personal history of transient ischemic attack (TIA), and cerebral infarction without residual deficits; Z74.01 Bed confinement status; L89.322 Pressure ulcer of left buttock, stage 2; L89.312 Pressure ulcer of right buttock, stage 2; E78.00 Pure hypercholesterolemia, unspecified; Z88.0 Allergy status to penicillin; Z79.899 Other long term (current) drug therapy
CPT/HCPCS: 36415; 71045; 74176; 80048; 80076; 82962; 83036; 83605; 84145; 84484; 85025; 85027; 87426; 93005; 93970; 99285; A4606; J1650; J2185; J2470; J2543; J3373; J7030